=== PATIENT | male | born 1985 | race Caucasian/White ===

== ENCOUNTER → 2018-03-23 | Outpatient (CLI) | payer OTHER | LOC: FIMAGING 09:15 | PROVIDERS: ATTEND Internal Medicine | DX: J32.4 Chronic pansinusitis (principal) ==

== ENCOUNTER 2018-07-03 08:26 | Day surgery (SDC) | payer OTHER ==
[2018-07-03] MEDS ORDERED: OXYMETAZOLINE 30 ML NASAL SPRAY EACHNARE ONE (08:37)
[2018-07-03] MEDS ORDERED: DEXAMETHASONE 10 MG/ML VIAL IVP ONE (08:37)
[2018-07-03] MEDS ORDERED: LR 1,000 ML IV ONE (08:40)
[2018-07-03] MEDS ORDERED: PROPOFOL/EMULSION 500 MG/50 ML BOTTLE IV ONE ×2 (09:35→11:37)
[2018-07-03] MEDS ORDERED: fentaNYL 100 MCG/2 ML INJ ONE ×2 (09:35→12:32)
[2018-07-03] MEDS ORDERED: PROPOFOL 200 MG/20 ML VIAL ONE (09:35)
[2018-07-03] MEDS ORDERED: OXYMETAZOLINE 30 ML NASAL SPRAY ONE (09:37)
[2018-07-03] MEDS ORDERED: BACITRACIN ZINC 0.5 OZ OINTTUBE TP ONE (09:37)
[2018-07-03] MEDS ORDERED: LIDO/EPI 1% **Not for Epidural 20 ML MDV ONE ×2 (09:37→11:37)
[2018-07-03] MEDS ORDERED: MIDAZOLAM 2 MG/2 ML VIAL IVP ONE (09:40)
[2018-07-03] MEDS ORDERED: REMIFENTANIL HCL 1 MG VIAL ONE ×2 (09:41→11:37)
--- NOTE | 2018-07-03 09:41 | PDANEPAE ---
ANE Past Medical History - Cardiovascular History Hx Hypertension: No Hx Arrhythmias: No Hx Chest Pain: No Hx Coronary Artery / Peripheral Vascular Disease: No Hx CHF / Valvular Disease: No Hx Palpitations: No - Pulmonary History Hx COPD: No Hx Asthma/Reactive Airway Disease: Yes Hx Recent Upper Respiratory Infection: No Hx Oxygen in Use at Home: No Hx Sleep Apnea: No Sleep Apnea Screening Result - Last Documented: Negative Pulmonary History Comment: ASTHMA [employer]IGG[employer]MENT[employer]. NO INHALER USED FOR QUITE SOME TIME. 04/2018 URI - Neurologic History Hx Cerebrovascular Accident: No Hx Seizures: No Hx Dementia: No - Endocrine History Hx Diabetes: No - Renal History Hx Renal Disorders: No - Liver History Hx Hepatic Disorders: No - Neurological & Psychiatric Hx Hx Neurological and Psychiatric Disorders: No - Cancer History Hx Cancer: No - Congenital Disorder History Hx Congenital Disorders: No - GI History Hx Gastrointestinal Disorders: No - Other Health History Other Health History: NASAL CONGESTION. DEVIATED SEPTUM - Chronic Pain History Chronic Pain: No - Surgical History Prior Surgeries: NONE ANE Review of Systems Review of Systems: - Exercise capacity METS (RN): 4 METS ANE Patient History - Allergies Allergies/Adverse Reactions: No Known Allergies Allergy (Unverified 06/19/18 15:28) - Home Medications Home Medications: Albuterol Hfa Anes Only PRN 06/19/18 [Last Taken 1 Week Ago ~06/26/18] Ibuprofen PRN 06/19/18 [Last Taken 2 Weeks Ago ~06/19/18] - NPO status NPO Since - Liquids (Date): 07/03/18 NPO Since - Liquids (Time): 21:00 NPO Since - Solids (Date): 07/02/18 NPO Since - Solids (Time): 21:00 - Smoking Hx Smoking Status: Never smoked - Family Anes Hx Family Hx Anesthesia Complications: NEG ANE Labs/Vital Signs - Vital Signs Vital Signs: reviewed preoperatively; see RN documention for details Blood Pressure: 126/78 Heart Rate: 67 Respiratory Rate: 13 O2 Sat (%): 97 Height: 190.5 cm Weight: 94.347 kg ANE Physical Exam - Airway Neck exam: FROM Mallampati Score: Class 2 Mouth exam: normal dental/mouth exam - Pulmonary Pulmonary: clear to auscultation - Cardiovascular Cardiovascular: regular rate and rhythym - ASA Status ASA Status: II ANE Anesthesia Plan Anesthesia Plan: general endotracheal anesthesia
--- NOTE | 2018-07-03 09:43 | PDHPUP ---
History & Physical Update H&P update statement: This history and physical update is based on an assessment of the patient which was completed after admission or registration (within 24 hours), but prior to the surgery/procedure. H&P update: H&P reviewed & patient examined, no change in patient's condition since H&P completed
[2018-07-03] MEDS ORDERED: SCOPOLAMINE HYDROBROMIDE 1 MG/3 DAYS PATCH TD ONE (09:44)
[2018-07-03] MEDS ORDERED: ROCURONIUM 50 MG/5 ML VIAL ONE (09:49)
[2018-07-03] MEDS ORDERED: PETROLAT,WHT/MIN OIL/SOD CHL 3.5 GM OPHT.OINT ONE (09:50)
[2018-07-03] MEDS ORDERED: RANITIDINE 50 MG/2 ML VIAL ONE (10:27)
[2018-07-03] MEDS ORDERED: METOCLOPRAMIDE 10 MG/2 ML VIAL ONE (10:27)
[2018-07-03] MEDS ORDERED: DEXAMETHASONE 4 MG/ML VIAL ONE (10:27)
[2018-07-03] MEDS: OXYMETAZOLINE 30 ML NASAL SPRAY EACHNARE ONE ×2 (10:57→10:59)
[2018-07-03] MEDS ORDERED: ONDANSETRON 4 MG/2 ML VIAL ONE (11:37)
[2018-07-03] MEDS ORDERED: METOCLOPRAMIDE 10 MG/2 ML VIAL IVP PRN (12:05)
[2018-07-03] MEDS ORDERED: oxyCODONE IR 5 MG TAB PO PRN (12:05)
[2018-07-03] MEDS ORDERED: ACETAMINOPHEN 500 MG TAB PO PRN (12:05)
[2018-07-03] MEDS ORDERED: MEPERIDINE 25 MG/0.5 ML AMP IVP PRN (12:05)
[2018-07-03] MEDS ORDERED: HYDROCODONE/APAP 5/325 TAB PO PRN (12:05)
[2018-07-03] MEDS ORDERED: ONDANSETRON 4 MG/2 ML VIAL IVP PRN (12:05)
[2018-07-03] MEDS ORDERED: fentaNYL 100 MCG/2 ML INJ IVP PRN (12:05)
[2018-07-03] MEDS ORDERED: ALBUTEROL 3 ML DEYVIAL IH PRN (12:05)
[2018-07-03] MEDS ORDERED: DIAZEPAM 5 MG/ML 1 ML SYR IVP PRN (12:05)
[2018-07-03] MEDS ORDERED: PROMETHAZINE HCL 25 MG/ML INJ IVP PRN (12:05)
[2018-07-03] MEDS ORDERED: NALOXONE HCL 0.4 MG/ML INJ IVP PRN (12:05)
[2018-07-03] MEDS ORDERED: HYDROmorphONE/DILAUDID 2 MG/ML INJ IVP PRN (12:05)
[2018-07-03] MEDS ORDERED: LR 500 ML IV PRN (12:05)
--- NOTE | 2018-07-03 12:17 | POSTOPPROG ---
Post Op Note Date of Operation: 07/03/18 Surgeon: Lora Bingham Anesthesiologist: Phylicia Anesthesia: GET(General Endotracheal) Pre-op Diagnosis: chronic sinusitis turb hypertrophy Post-op Diagnosis: same plus nasal septsal deviation Indication: see above Procedure: NSR Smrit, ESS bilateral balloon frontal sinuplasty Findings: sinusitis Inf/Abcess present in the surg proc area at time of surgery?: No Depth: Superfical (Skin SQ) EBL: 50-100 Total fluids administered: 500 Complications: exposed dura at skull base covered with mucosa and surgiceel Specimen(s): right and left sinus [id number]
[2018-07-03] MEDS ORDERED: HYDROCODONE/APAP 5/325 TAB ONE (12:54)
[2018-07-03 13:56] VITALS: BP 142/86
--- NOTE | 2018-07-03 14:20 | POSTANESTH ---
Post Anesthetic Evaluation Cardiovascular Status: Normal, Stable Respiratory Status: Normal, Stable Level of Consciousness/Mental Status: Can Participate in Eval Pain Control: Adequate, Prn Tx Ordered Nausea/Vomiting Control: Adequate, Prn Tx Ordered Complications Possibly Related to Anesthesia: None Noted
--- NOTE | 2018-07-03 15:45 | GOP ---
[f rep st] OPERATIVE REPORT DATE OF OPERATION: 07/03/2018 SURGEON: Eduardo Bingham MD MATERIAL CREW SUPERVISOR: None. ANESTHESIA: General endotracheal. PREOPERATIVE DIAGNOSIS: 1. Chronic sinusitis. 2. Inferior turbinate hypertrophy. 3. Nasal septal deformity. POSTOPERATIVE DIAGNOSIS: 1. Chronic sinusitis. 2. Inferior turbinate hypertrophy. 3. Nasal septal deformity. PROCEDURE PERFORMED: Bilateral total endoscopic ethmoidectomy with bilateral endoscopic maxillary an trostomy, and submucosal resection of the inferior turbinates, plus nasal septal reconstruction, bila teral frontal balloon sinuplasty. 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 ESTIMATED BLOOD LOSS: 100 mL. DESCRIPTION OF PROCEDURE: The patient was placed on the operating table in supine position. After i nduction of adequate general endotracheal anesthesia, sterile draping was performed. Pledgets soaked in Arpit-Synephrine were inserted into the right and left side of the nose. In addition, the soft tis sues overlying the inferior turbinates, and middle turbinates, and middle meatus bilaterally were inf iltrated utilizing 1% lidocaine with 1:100,000 parts of epinephrine. It was noted that the patient h ad a high septal deviation toward the left. Initially, attention was directed to the right side of t he nose. Attempts were made to pass the balloon with moderate difficulty encountered. The uncinate process was then incised on the left, and the ethmoid bulla was entered. Total endoscopic ethmoidect warner proceeded on the left. Care was given to the avoidance of injury to the fovea ethmoidalis and la carlos papyracea. In one area the dura was exposed, although no leak was identified. A mucosal flap w as then harvested by trimming the inferior portion of the left middle turbinate. The bone was then d issected free. The mucosa was laid across the fovea ethmoidalis and packed firmly into place using S urgicel packing. 2 packs of 14 x 7 Surgicel were placed against the mucosal flap to hold its positio n and prevent leakage of spinal fluid. At this point, attention was directed to left maxillary antro stomy. A wide antrostomy was created. At this point, the balloon was passed without difficulty into the frontal sinus. Frontal balloon sinuplasty was performed. The balloon was blown up to 12 atmosp heres in the frontal ostium. It was then withdrawn slightly and again blown up to 12 atmospheres to provide adequate dilatation of the frontal sinus ostia. Attention was then directed to the right jaky e of the nose. It was noted that the patient had a high septal deformity obscuring visualization of the middle meatus structure. A polyp was noted to be present in the anterior portion of the middle m eatus. In order to access this, nasal septal reconstruction was performed. A left hemitransfixion i ncision was created and carried down to the layer deep to the mucoperichondrium. Just anterior to th e most significant septal deformity, the septal cartilage was incised. A flap was then elevated on t he right side of the nose and submucoperichondrial plane. Deformed septal bone and cartilage were re moved which resulted in marked improvement in the patient's airway and exposure of the middle meatus. The middle turbinate was infractured, and the uncinate process was visualized and incised. Total e ndoscopic ethmoidectomy proceeded on the right. Again, polypoid degeneration of virtually all the et hmoid air cells was encountered throughout this dissection. Care was given to the avoidance of injur y to the fovea ethmoidalis and the lamina papyracea. The natural ostium of the right maxillary sinus was widely opened using frontbiting and backbiting forceps. At this point, attention was directed t o the nasal septum. Morselized portions of septal cartilage were reinserted between the septal leave s. The hemitransfixion incision was then closed with three 3-0 chromic sutures. The septal leaves w ere reapproximated utilizing four 4-0 plain gut sutures placed in a [id number] ion. At this point, attention was directed to the inferior turbinates. The Xomed polyp shaver was u sed to perform submucosal resection of the inferior turbinates. Initially, the right inferior turbin ate was addressed. It was hydroinfiltrated utilizing 1% lidocaine, then the stab portion of the turb inate wing was used to create a stab incision along the anterior aspect of the inferior turbinate. T he elevator portion was then used to elevate the mucosa off the underlying bone. Numerous passes wer e made along the long axis of the inferior turbinate, markedly reducing its submucosal mass. It was noted that the turbinate remained somewhat hypotrophic, and its anterior inferior margin was trimmed using curved scissors. The residual turbinate tissue was then outfractured. An identical procedure was performed on the left. Submucosal resection of the inferior turbinate was performed followed by turbinate infracture with excision of the anterior inferior aspect of the mucosa. The residual turbi jarocho tissue was then outfractured. Rolled Telfa was then inserted into the patient's nose adjacent t o the inferior turbinates to act as packing. The patient was then awakened and transferred to postan esthesia recovery area in stable condition. When I was on the right side, the last thing I did, the balloon was then easily passed into the front al sinus ostia, and its position was verified with light on the anterior wall of the frontal sinus. This ostium was then dilated using the balloon. The balloon was blown up to 12 atmospheres in the ma in ostium of the frontal sinus duct. It was then backed out approximately 0.5 cm and reinflated to 1 2 atmospheres in order to create a wide frontal ostium. FLUID REPLACEMENT: 400 mL. COMPLICATIONS: Exposed dura, left fovea ethmoidalis. Mucosal free graft placed internally, packed i nto place with Surgicel packing. /[id number]/MODL
== END 2018-07-03 13:30 | disposition home or self-care (01) ==
LOC: FSGY 08:26
PROVIDERS: ATTEND Otolaryngology
DX: J32.9 Chronic sinusitis, unspecified (principal); J34.3 Hypertrophy of nasal turbinates; J33.9 Nasal polyp, unspecified; J34.2 Deviated nasal septum
CPT/HCPCS: 30140; 31255; 31256; 31296; C1726; J1100; J2250; J2405; J2704; J2765; J2780; J3010